=== PATIENT | male | born 1970 | race Caucasian/White ===

== ENCOUNTER 2017-05-16 20:41 | Emergency (ER) | payer OTHER ==
[2017-05-16 22:18] VITALS: BP 138/76
== END 2017-05-16 22:18 | disposition home or self-care (01) ==
LOC: ED 20:41
DX: J98.01 Acute bronchospasm (principal); K21.9 Gastro-esophageal reflux disease without esophagitis
CPT/HCPCS: J7613; J7644; Q0092